=== PATIENT | female | born 2000 | race African-American/Black ===

== ENCOUNTER 2024-07-22 22:50 | Emergency (ER) | payer SELFPAY ==
[~2024-07-22] VITALS: Ht 180.3 cm; Wt 94.0 kg
[2024-07-22 23:13] VITALS: TEMP 36.9; O2SAT 100
[2024-07-23] MEDS: METOCLOPRAMIDE HCL 10MG TABLET PO ONE (00:24)
[2024-07-23] MEDS: ACETAMINOPHEN 500MG TABLET PO ONE (00:24)
[2024-07-23] MEDS ORDERED: NAPR-1176 MT (01:21)
[2024-07-23] MEDS ORDERED: LIDO700A15 TP (01:21)
[2024-07-23 02:20] VITALS: BP 116/69; PULSE 61; RESP 18; O2SAT 95
== END 2024-07-23 02:23 | disposition home or self-care (01) ==
LOC: ER 22:50
DX: S40.011A Contusion of right shoulder, initial encounter (principal); S60.222A Contusion of left hand, initial encounter; J45.909 Unspecified asthma, uncomplicated; Z79.1 Long term (current) use of non-steroidal anti-inflammatories (NSAID); V98.8XXA Other specified transport accidents, initial encounter; Y93.89 Activity, other specified; Y92.89 Other specified places as the place of occurrence of the external cause; Y99.8 Other external cause status
CPT/HCPCS: 99284; 73030; 73120; J8597

== ENCOUNTER 2024-08-23 12:12 | Emergency (ER) | payer SELFPAY ==
[~2024-08-23] VITALS: Ht 175.3 cm; Wt 82.0 kg
[~2024-08-23 12:12] MED LIST: LIDO700A15 TP; NAPR-1176 MT
[2024-08-23 12:14] VITALS: BP 136/72; PULSE 98; RESP 16; TEMP 36.9; O2SAT 100
[2024-08-23] MEDS: IBUPROFEN 600MG TABLET PO ONE (13:05)
== END 2024-08-23 20:57 | disposition home or self-care (01) ==
LOC: ER 12:12
DX: Z59.00 Homelessness unspecified (principal); Z79.1 Long term (current) use of non-steroidal anti-inflammatories (NSAID)
CPT/HCPCS: 73030; 99283